=== PATIENT | female | born 1980 | race Caucasian/White ===

== ENCOUNTER 2022-03-18 09:25 | Outpatient (CLI) | payer OTHER, SELFPAY ==
--- NOTE | ~2022-03-18 | MM_ITS ---
EXAMINATION: MM screening guru BI w deborah HISTORY: Screening TECHNIQUE: Craniocaudal and mediolateral oblique 3-D tomosynthesis images were obtained and synthetic 2-D images were generated. CAD analysis was submitted and interpreted. COMPARISON: No prior mammogram is available for comparison at this institution. BREAST PARENCHYMAL COMPOSITION: There are scattered areas of fibroglandular density. FINDINGS: There is no evidence of suspicious mass, calcification, or architectural distortion to sugg est malignancy in either breast. There has been no suspicious interval change. IMPRESSION: 1. No mammographic evidence of malignancy. 2. Recommend routine screening mammography in one year. BI-RADS Category 1: Negative Reviewed, dictated and finalized at location B. 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
== END 2022-03-18 09:26 | disposition home or self-care (01) ==
LOC: ANHIMG 09:26
PROVIDERS: PCP Family Medicine; Visit Provider Obstetrics & Gynecology
DX: Z12.31 Encounter for screening mammogram for malignant neoplasm of breast (principal)
CPT/HCPCS: 77063; 77067

== ENCOUNTER 2022-09-19 21:52 | Emergency (ER) | payer OTHER, SELFPAY ==
--- NOTE | ~2022-09-19 | XR_ITS ---
EXAMINATION: XR chest 2V DATE: 09/20/2022 02:51 INDICATION: Chest pain TECHNIQUE: PA and lateral views of the chest are obtained. COMPARISON: 02/11/2010 FINDINGS: The lungs are free of acute opacities. No pleural effusion or pneumothorax. The cardiomedia stinal silhouette is normal. There is mild thoracic spondylosis. IMPRESSION: 1. No acute cardiopulmonary abnormality. Reviewed, dictated and finalized at location A.
[2022-09-19 21:55] VITALS: BP 163/111; PULSE 77; RESP 18; TEMP 36.7; O2SAT 100
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
[2022-09-20 03:19] VITALS: BP 130/77; PULSE 77; RESP 18; O2SAT 99
== END 2022-09-20 03:32 | disposition home or self-care (01) ==
PROVIDERS: Emergency Provider Physician Assistant; PCP Family Medicine
DX: S19.9XXA Unspecified injury of neck, initial encounter (principal); S79.911A Unspecified injury of right hip, initial encounter; S49.92XA Unspecified injury of left shoulder and upper arm, initial encounter; J45.909 Unspecified asthma, uncomplicated; M79.7 Fibromyalgia; Z90.49 Acquired absence of other specified parts of digestive tract; Z98.84 Bariatric surgery status; V49.40XA Driver injured in collision with unspecified motor vehicles in traffic accident, initial encounter
CPT/HCPCS: 71046; 96372; 99283; J1100

== ENCOUNTER 2023-07-02 10:57 | Outpatient (CLI) | payer OTHER, SELFPAY ==
--- NOTE | ~2023-07-02 | XR_ITS ---
EXAM: XR hand RT min 3V DATE: 07/02/2023 11:09 HISTORY: M25.449 - Effusion, unspecified hand . COMPARISON: None available. FINDINGS: Normal mineralization. No fracture or dislocation. No lytic or blastic lesion. Mild arthri tic changes typical of osteoarthritis in the DIP joints of the fingers and the third PIP joint. No er osion or periosteal change. Soft tissues within normal limits. IMPRESSION: Mild polyarticular osteoarthritis. Reviewed, dictated and finalized at location K.
== END 2023-07-02 10:58 ==
LOC: MICIMG 10:59
PROVIDERS: PCP Family Medicine; Visit Provider Nurse Practitioner Adult Health
DX: M19.041 Primary osteoarthritis, right hand (principal)
CPT/HCPCS: 73130

== ENCOUNTER 2024-02-03 14:19 | Outpatient (CLI) | payer OTHER, SELFPAY ==
[2024-02-03 14:34] LABS: Basophils Percent Auto 0.3 % (0.2-1.2); Eosinophils Absolute Auto 0.4 K/mm3 (0-0.3); Eosinophils Percent Auto 5.9 % (0-4.4); Hematocrit 28.4 % (37.0-47.0); Hemoglobin 7.4 g/dL (12.0-15.0); Immature Granulocyte Absolute 0.02 K/mm3 (0.00-0.031); Immature Granulocyte Percent A 0.3 % (0-0.5); Lymphocytes Absolute Auto 2.58 K/mm3 (0.9-3.2); Lymphocytes Percent Auto 39.2 % (18.3-44.2); Mean Corpuscular HGB Conc 26.1 g/dl (32-36); Mean Corpuscular Hemoglobin 17.5 pg (26-34); Mean Corpuscular Volume 67.3 fl (80-100); Mean Platelet Volume 9.9 fl (7.4-10.4); Monocytes Absolute Auto 0.6 K/mm3 (0.1-0.6); Monocytes Percent Auto 8.5 % (2.6-8.5); Neutrophils Percent Auto 45.8 % (45.5-73.1); Platelet Count Result 318 k/mm3 (150-375); Red Blood Count 4.22 M/mm3 (4.2-5.4); Red Cell Distribution Width 18.1 % (11.5-14.5); White Blood Count 6.6 K/mm3 (4.5-10.0)
[2024-02-03 14:39] LABS: Platelet Estimate Adequate (Adequate)
[2024-02-03 14:40] LABS: Hypochromasia 1+; Ovalocytes 1+; Schistocytes None Seen
[2024-02-03 14:41] LABS: Anisocytosis 1+; Microcytosis 1+ (NORMAL)
[2024-02-03 14:42] LABS: Poikilocytosis 1+
[2024-02-03 16:46] LABS: Iron 18 ug/dL (37-170)
[2024-02-03 16:48] LABS: Alanine Aminotransferase 81 U/L (6-35); Albumin Level 3.9 g/dL (3.5-5.1); Alkaline Phosphatase 105 U/L (38-126); Anion Gap 8 mmol/L (4-12); Aspartate Amino Transferase 59 U/L (14-36); Bilirubin,Total 0.6 mg/dL (0.2-1.3); Blood Urea Nitrogen 11 mg/dL (7-17); Calcium 8.7 mg/dL (8.4-10.2); Carbon Dioxide 30 mmol/L (22-30); Chloride 100 mmol/L (98-107); Estimated Glomerular Filt Rate > 60; Glucose 84 mg/dL (65-110); Potassium 3.8 mmol/L (3.4-5.0); Sodium 138 mmol/L (137-145)
[2024-02-03 16:57] LABS: Percent Iron Saturation 3 % (20-50)
[2024-02-03 17:22] LABS: Ferritin 4.36 ng/mL (6.24-137)
[2024-02-03 17:55] LABS: Folic Acid 8.8 ng/mL (2.76->20)
[2024-02-11 12:13] LABS: Soluble Transferrin Receptor 3.76 mg/L (0.76-1.76)
== END 2024-02-03 14:20 | disposition home or self-care (01) ==
LOC: ANHLAB 14:20
PROVIDERS: PCP Family Medicine; Visit Provider Internal Medicine Hematology & Oncology
DX: D64.9 Anemia, unspecified (principal)
CPT/HCPCS: 36415; 80053; 82607; 82728; 82746; 83540; 83550; 84238; 85025

== ENCOUNTER 2024-04-09 09:14 | Outpatient (CLI) | payer OTHER, SELFPAY ==
[2024-04-09 09:33] LABS: Hematocrit 28.6 % (37.0-47.0); Hemoglobin 7.5 g/dL (12.0-15.0); Mean Corpuscular HGB Conc 26.2 g/dl (32-36); Mean Corpuscular Hemoglobin 17.2 pg (26-34); Mean Corpuscular Volume 65.7 fl (80-100); Mean Platelet Volume 9.4 fl (7.4-10.4); Platelet Count Result 284 k/mm3 (150-375); Red Blood Count 4.35 M/mm3 (4.2-5.4); White Blood Count 7.3 K/mm3 (4.5-10.0)
[2024-04-09 15:53] LABS: Iron 19 ug/dL (37-170)
[2024-04-09 16:02] LABS: Percent Iron Saturation 3 % (20-50); TOTAL IRON BINDING CAPACITY 558 ug/dL (261-462)
[2024-04-09 16:28] LABS: Ferritin 4.02 ng/mL (6.24-137)
== END 2024-04-09 09:15 | disposition home or self-care (01) ==
LOC: ANHLAB 09:14
PROVIDERS: Visit Provider Internal Medicine Hematology & Oncology
DX: D64.9 Anemia, unspecified (principal)
CPT/HCPCS: 36415; 82728; 83540; 83550; 85027

== ENCOUNTER 2024-06-05 08:29 | Outpatient (CLI) | payer OTHER, SELFPAY | END 2024-06-05 08:30 | disposition home or self-care (01) | LOC: MICIMG 08:29 | PROVIDERS: Visit Provider Nurse Practitioner Obstetrics & Gynecology | DX: N83.291 Other ovarian cyst, right side (principal) | CPT/HCPCS: 76830; 76856 ==

== ENCOUNTER 2024-07-14 13:54 | Outpatient (CLI) | payer OTHER, SELFPAY ==
[2024-07-14 14:07] LABS: Basophils Percent Auto 0.1 % (0.2-1.2); Eosinophils Percent Auto 0.1 % (0-4.4); Hemoglobin 12.7 g/dL (12.0-15.0); Immature Granulocyte Absolute 0.03 K/mm3 (0.00-0.031); Immature Granulocyte Percent A 0.3 % (0-0.5); Lymphocytes Absolute Auto 0.49 K/mm3 (0.9-3.2); Lymphocytes Percent Auto 5.4 % (18.3-44.2); Mean Corpuscular HGB Conc 30.2 g/dl (32-36); Mean Corpuscular Hemoglobin 24.3 pg (26-34); Mean Corpuscular Volume 80.3 fl (80-100); Mean Platelet Volume 9.7 fl (7.4-10.4); Monocytes Absolute Auto 0.1 K/mm3 (0.1-0.6); Monocytes Percent Auto 1.1 % (2.6-8.5); Neutrophils Absolute Auto 8.4 K/mm3 (1.3-6.7); Platelet Count Result 308 k/mm3 (150-375); Red Blood Count 5.23 M/mm3 (4.2-5.4); Red Cell Distribution Width 19.3 % (11.5-14.5)
--- OUTSIDE RECORDS SUMMARY | 2024-07-14 15:34 | XMS_ITS | Clinical Summary ---
Author Organization [facility] Address [address] [place] [address] Care Team Providers Care Academic Adviser Name Role Phone [place] Rodriguez MD Primary Care Provider Allergies Active Allergy Reactions Criticality Noted Date Comments Ciprofloxacin Diarrhea,Other (See comments),Stomach upset Low Reaction: GI UPSET, DIARRHEA, DEHYDRATION, Ibuprofen Other (See comments) Low Reaction: HYPEREMESIS, Lactose Stomach upset Low Metronidazole Diarrhea Low 07/20/2010 Nsaids (Non-Steroidal Anti-Inflammatory Drug) Stomach upset Low 05/18/2018 Penicillins Hives,Vomiting Medium Sulfa (Sulfonamide Antibiotics) Stomach upset,Diarrhea,Other (See comments) Reaction: GI UPSET, DIARRHEA, DEHYDRATION, Medications pregabalin (LYRICA) 100 mg capsule Take 100 mg by mouth every morning 0 Active dronabinoL (MARINOL) 2.5 mg capsule Take 2.5 mg by mouth every morning 0 Active rizatriptan (MAXALT) 10 mg tablet Take 10 mg by mouth once as needed for migraine 0 Active albuterol 2.5 mg /3 mL (0.083 %) nebulizer solutionIndicat ions:Acute Asthma Attack Take 2.5 mg by nebulization every 4 (four) hours as needed Active Vimovo 500-20 mg tablet,IR & delay rel,biphasicInd ications:pain on hold for surgery Take 1 tablet by mouth 2 (two) times a day 0 Active oxyCODONE (ROXICODONE) 10 mg tablet Take 10 mg by mouth every 4 (four) hours as needed for pain 0 Active Xtampza ER 18 mg capsule,sprinkl e,ER 12hr tmprrIndication s:severe chronic pain requiring long-term opioid treatment Take 1 Caplet by mouth 2 (two) times a day 0 Active norethindrone (AYGESTIN) 5 mg tabletIndicatio ns:ovarian cyst Take 5 mg by mouth nightly 0 Active omeprazole (PriLOSEC) 40 mg capsuleIndicati ons:Stress Ulcer Prophylaxis Take 40 mg by mouth nightly [address] (CYMBALTA) 30 mg capsuleIndicati ons:Anxiety with Depression Take 30 mg by mouth nightly 0 Active cyclobenzaprine (FLEXERIL) 10 mg tabletIndicatio ns:Muscle Spasm Take 10 mg by mouth 2 (two) times a day as needed 0 Active cholecalciferol (VITAMIN D-3) 25 mcg (1,000 unit) tabletIndicatio ns:Vitamin D Deficiency Take 1,000 Units by mouth nightly Active dronabinoL (MARINOL) 5 mg capsule Take 5 mg by mouth nightly Active pregabalin (LYRICA) 300 mg capsule Take 300 mg by mouth nightly Active albuterol HFA (PROVENTIL HFA,VENTOLIN HFA,PROAIR HFA) 90 mcg/actuation inhalerIndicati ons:Acute Asthma Attack Inhale 2 puffs every 6 (six) hours as needed for shortness of breath 1 Inhaler 0 Active oxyCODONE-aceta minophen (PERCOCET) 10-325 mg per tablet 0 Active Active Problems Problem Noted Date Diagnosed Date Pigmented villonodular synovitis of knee, right 01/27/2020 Overview (01/27/2020): Added automatically from request for surgery [id number] 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 01/26/2020 Degeneration of intervertebral disc of lumbar re gion 01/19/2014 Overview (07/12/2016): Degenerative lumbar disc RUQ pain 06/27/2010 Anxiety 01/29/2010 Asthma 01/29/2010 Back pain 01/29/2010 DJD (degenerative joint disease) 01/29/2010 Dyspnea on exertion 01/29/2010 GERD (gastroesophageal reflux disease) 0 Hypertension 01/29/2010 Pre-op testing 01/29/2010 Morbid obesity 09/14/2009 Immunizations Immunization Administration Dates Next Due Influenza, Trivalent, Cell C ulture-based MDCK, Preservative Free, Antibiotic Free, Intramuscular 03/24/2019,05/18/2018 Influenza, Trivalent, IM (MDV) 02/12/2013 Surgical History Surgery Date Site/Laterality Comments MOLE REMOVAL 04/07/1988 - 04/06/1989 pre-cancer CARPAL TUNNEL RELEASE 04/07/2000 - 04/06/2001 Bilateral SECTION 06/2006, 03/2008 TUBAL LIGATION 03/07/2008 - 04/06/2008 BREAST SURGERY 03/07/2009 - 04/06/2009 milk duct BARIATRIC SURGERY 02/06/2010 gastric bypass CHOLECYSTECTOMY 06/05/2010 - 07/05/2010 UTERINE FIBROID EMBOLIZATION 04/07/2010 - 04/06/2011 HERNIA REPAIR 09/06/2011 - 10/05/2011 LUMBAR FUSION 02/05/2014 - 03/06/2014 L5-S1 BIOPSY 12/21/2019, 12/28/2019 Right leg Social History Tobacco Use Types Packs/Day Years Used Date Smoking Tobacco: Never Smokeless Tobacco: Never Alcohol Use Standard Drinks/Week Comments Not Currently 0 (1 standard drink = 0.6 oz pur e alcohol) AUDIT-C Answer Date Recorded Q1: How often do you have a drink containing alc ohol? Never 02/21/2020 Average Number of Drinks Not on file 020 Frequency of Binge Drinking Not on file 02/05 Comments Unknown Sex and Gender Information Value Date Recorded Sex Assigned at Not on file Legal Sex Female 2:45 PM LICENSED NURSING ASSISTANT Gender Identity Female 02/23/2020 2:31 PM LICENSED NURSING ASSISTANT Sexual Orientation Straight 02/23/2020 2: 31 PM LICENSED NURSING ASSISTANT Obstetrics History Last Filed Vital Signs Vital Sign Reading Time Taken Comments Blood Pressure 132/89 03/16/2020 3:50 PM LICENSED NURSING ASSISTANT Pulse 85 03/16/2020 3:50 PM LICENSED NURSING ASSISTANT Temperature 36.4 C (97.5 F) 03/16/2020 5:30 PM LICENSED NURSING ASSISTANT Respiratory Rate 13 03/16/2020 3:50 PM LICENSED NURSING ASSISTANT Oxygen Saturation 97% 03/16/2020 3:50 PM LICENSED NURSING ASSISTANT Inhaled Oxygen Concentration - - Weight 99.8 kg (220 lb) 02/21/2020 3:40 PM LICENSED NURSING ASSISTANT Height 165.1 cm (5' 5 ) 02/21/2020 3:40 PM LICENSED NURSING ASSISTANT Body Mass Index 36.61 02/21/2020 3:40 PM LICENSED NURSING ASSISTANT Plan of Treatment Not on file Insurance [facility] Member Subscriber Plan / Payer (Ef fective 2019-Present) Name:Jonathan Rueda Relation to Subscriber:Self Name:Jonathan Rueda Payer ID:[id number] Group ID:[id number] Type:MANAGED CARE OTHER Address: [address] [place] [address] [facility] Subscriber Plan / Payer (Ef fective 2019-Present) Name:Jonathan Rueda Relation to Subscriber:Self Name:Sneha Jonathan Greenberg Payer ID:[id number] Group ID:[id number] Type:MANAGED CARE OTHER Address: [address] [place] [address] Care Teams Academic Adviser Relationship Specialty Start Date End Date [place] Rodriguez MD PCP - General Family Medicine 03/04/18
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
--- OUTSIDE RECORDS SUMMARY | 2024-07-14 15:34 | XMS_ITS | Clinical Summary ---
Author Organization [facility] Care Team Providers Care Cash Management Officer Name Role Phone Unavailable Primary Care Provider Unavailabl e Social History Tobacco Use Types Packs/Day Years Used Date Smoking Tobacco: Never Assessed Comments Unknown Sex and Gender Information Value Date Recorded Sex Assigned at Not on file Legal Sex Female 10:05 PM CDT Gender Identity Not on file Sexual Orientation Not on file Plan of Treatment Health Maintenance Due Date Last Done Comments Hepatitis C Virus (HCV) Screening 1979 TdaP Immunization 1979 Hepatitis B Immunization (1 of 3 - 19+ 3-dose series) 09/16/1998 Pap Smear 09/16/2000 Cervical Cancer Screening (CCS) 09/16/2009 HPV/Cotest 09/16/2009 Discussion re Starting/Frequency of Mammograms 2019 Influenza Immunization (#1) 2023 02/12/2013 SARS-COV-2 Immunization ( season) 2023 05/24/2020, 04/26/2020 Respiratory Syncytial Virus (RSV) Immunization (Adult) (1 - 1-dose 75+ series) 09/16/2054 Meningococcal Immunization (ACWY) Aged Out No longer eligible b ased on patient's age to complete this topic Pneumococcal Immunization Combined Aged Out No longer eligible b ased on patient's age to complete this topic Rotavirus Immunization Aged Out No lo nger eligible based on patient's age to complete this topic
--- OUTSIDE RECORDS SUMMARY | 2024-07-14 15:34 | XMS_ITS | Continuity of Care Document ---
Author Organization [facility] Address [address] [place] [address] Phone Care Team Providers Care Coating Manager Name Role Phone Reyes German Unavailable Unavailable Advance Directives Directive Yes / No Effective Date File Name No Information Encounters Encounter Description Practice Location Reason(s) For Visit Diagnoses Date Provider Providers Copied on Encounter [facility], [address] [place] [address] [address], [place], [place], [id number], [place] tel:[phone] [facility] [place] No Information Mar-2 9-200 2 Maxi Chambers. [address] [place] , [address], [place], [address], [place]. tel:[phone] Family History Family Member Type Diagnosis Age At Onset No Information Payers Payer name Insurance type Covered libertarian ID Authoriza tion(s) No Information Social History Type Description Quantity Date Captured Comments Sex Female Smoking Status No Information Chief Complaint And Reason For Visit No Information Reason For Referral Reason For Referral No Information History Of Present Illness Encounter Date Complaint History Of Prese nt Illness No Information Functional Status Date Functional Assessmen t No Information Instructions Date Instruction Additional Infor mation No Information Assessments Type Assessment Date No Information Patient Care Teams Name Effective Dates (start - stop) Status Members No Information
--- OUTSIDE RECORDS SUMMARY | 2024-07-14 15:35 | XMS_ITS | Referral Summary ---
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 [...] Intramuscular 03/24/2019,05/18/2018 Influenza, Trivalent, IM (MDV) 02/12/2013 Social History Tobacco Use Types Packs/Day Years [...] on file Legal Sex Female 2:45 PM SAP BUSINESS OBJECTS CONSULTANT Gender Identity Female 02/23/2020 2:31 PM SAP BUSINESS OBJECTS CONSULTANT Sexual Orientation Straight 02/23/2020 2: 31 PM SAP BUSINESS OBJECTS CONSULTANT Last Filed Vital Signs Vital Sign Reading Time Taken Comments Blood Pressure 132/89 03/16/2020 3:50 PM SAP BUSINESS OBJECTS CONSULTANT Pulse 85 03/16/2020 3:50 PM SAP BUSINESS OBJECTS CONSULTANT Temperature 36.4 C (97.5 F) 03/16/2020 5:30 PM SAP BUSINESS OBJECTS CONSULTANT Respiratory Rate 13 03/16/2020 3:50 PM SAP BUSINESS OBJECTS CONSULTANT Oxygen Saturation 97% 03/16/2020 3:50 PM SAP BUSINESS OBJECTS CONSULTANT Inhaled Oxygen Concentration - - Weight 99.8 kg (220 lb) 02/21/2020 3:40 PM SAP BUSINESS OBJECTS CONSULTANT Height 165.1 cm (5' 5 ) 02/21/2020 3:40 PM SAP BUSINESS OBJECTS CONSULTANT Body Mass Index 36.61 02/21/2020 3:40 PM SAP BUSINESS OBJECTS CONSULTANT Plan of Treatment Not on file Insurance Member Subscriber Plan / Payer (Ef fective 2019-Present) Name:Jonathan Hoover Relation to Subscriber:Self Name:Jonathan Hoover Dionicio Payer ID:[id number] Group ID:[id number] Type:MANAGED CARE OTHER Address: [address] [place] [address] [employer] [facility] Member Subscriber Plan / Payer ( fective 2019-Present) Name:Jonathan Hoover Relation to Subscriber:Self Name:Jonathan Hoover Payer ID:[id number] Group ID:[id number] Type:MANAGED CARE OTHER Address: [address] [place] [address] Care Teams Hrbp Relationship Specialty Start Date End Date [place] Rodriguez MD PCP - General Family Medicine 03/04/18
--- OUTSIDE RECORDS SUMMARY | 2024-07-14 15:35 | XMS_ITS | Clinical Summary ---
Author Organization [facility] Address [address] [address] Care Team Providers Care Fur Finisher Name Role Phone Lowell Rodriguez MD Primary Care Provider [phone] Allergies Active Allergy Reactions Criticality Noted Date Comments Aspirin, Buffered-Caffeine Other (See Comments) Medium 01/31/2010 Never take because of asthma per her doctor Ciprofloxacin Other (See Comments),Rash Low 09/18/2009 Ibuprofen Itching Low 10/05/2009 vomiting vomiting Levofloxacin Rash Low 09/18/2009 Metronidazole Diarrhea Low 07/20/2010 Penicillins Other (See Comments),Rash Low 09/18/2009 Sulfa (Sulfonamide Antibiotics) Diarrhea High 01/31/2010 Medications DULoxetine (CYMBALTA) 60 mg Capsule, Delayed Release(E.C.) Take 60 mg by mouth daily at bedtime. 3 Active magnesium oxide 250 mg magnesium Tablet Take 250 mg by mouth daily. Active orphenadrine (NORFLEX) 100 mg Extended Release tablet Take 100 mg by mouth 2 times daily. 4 Active omeprazole (PriLOSEC) 40 mg Capsule, Delayed Release(E.C.) Take 40 mg by mouth daily at bedtime. Active pregabalin (LYRICA) 300 mg Capsule Take 300 mg by mouth daily at bedtime. 0 Active oxyCODONE myristate (Xtampza ER) 27 mg capsule,sprbuck,E R 12hr tmprr Take by mouth. Active oxyCODONE (ROXICODONE) 10 mg tablet Take 10 mg by mouth every 6 hours as needed for Pain, Moderate. Active multivit-min/iron/ folic acid/K (BARIATRIC MULTIVITAMINS ORAL) Take by mouth. Active calcium carb/vitamin D3/vit K1 (CALCIUM-VITAMIN D3-VITAMIN K ORAL) Take by mouth. Active Active Problems No known active problems Encounters Date Type Department Care Team Description 07/09/2024 Telephone [facility] Oncology and Hematology - [place] [address] [place] [address] Joshua Torre MD Fatigue 06/23/2024 External Device Data STL ABSTRACTION Provider, Abstract 06/12/2024 External Device Data ST[facility] ABSTRACTION Provider, Abstract 06/12/2024 External Device Data [facility] ABSTRACTION Provider, Abstract 06/09/2024 External Device Data [facility] ABSTRACTION Provider, Abstract 05/26/2024 External Device Data ST[place] ABSTRACTION Provider, Abstract 05/25/2024 11:30 AM FINISHING MANAGER Telephone Check Up [facility] Oncology and Hematology [facility] [address] [place] [address] Joshua Torre MD Chronic anemia (Primary Dx) 05/05/2024 External Device Data STL ABSTRACTION Provider, Abstract 04/29/2024 External Device Data STL ABSTRACTION Provider, Abstract 04/27/2024 Telephone [facility] Oncology and Hematology [facility] [address] [place] [address] Joshua Torre MD Cloudy Urine 04/20/2024 External Device Data STL ABSTRACTION Provider, Abstract 04/20/2024 Orders Only [facility] Oncology and Hematology - [place] [address] [place] [address] Joshua Torre MD 04/16/2024 Orders Only [facility] Oncology and Hematology - [place] [address] [place] [address] Joshua Torre MD from Last 3 Months Family History Medical History Relation Name Comments No Known Problems Child 1 No Known Problems Child 2 No Known Problems Father Diabetes Mother No Known Problems Sister 1 No Known Problems Sister 2 Relation Name Status Comments Child 1 Alive Child 2 Alive Father Mother Alive Sister 1 Alive Sister 2 Alive Social History Tobacco Use Types Packs/Day Years Used Date Smoking Tobacco: Never Smokeless Tobacco: Never Tobacco Cessation:Counseling Given: Not Answered Alcohol Use Standard Drinks/Week Comments Yes 0 (1 standard drink = 0.6 oz pur e alcohol) occassionally Comments No Sex and Gender Information Value Date Recorded Sex Assigned at Not on file Legal Sex Female 3:27 PM CDT Gender Identity Not on file Sexual Orientation Not on file Last Filed Vital Signs Vital Sign Reading Time Taken Comments Blood Pressure 163/103 02/03/2024 1:49 PM CDT has been high lately running off of caffine patient says Pulse 78 02/03/2024 1:49 PM CDT Temperature 36.6 C (97.8 F) 02/03/2024 1:49 PM CDT Respiratory Rate 16 02/03/2024 1:49 PM CDT Oxygen Saturation 96% 02/03/2024 1:4 9 PM CDT Inhaled Oxygen Concentration - - Weight 85.3 kg (188 lb) 02/03/2024 1:49 PM CDT Height 165.1 cm (5' 5 ) 02/03/2024 1:49 PM CDT Body Mass Index 31.28 02/03/2024 1:49 PM CDT Plan of Treatment Upcoming Encounters Date Type Department Care Team (Late st Contact Info) Description 08/27/2024 10:45 AM CDT Office Visit [facility] Oncology and Hematology - [address] [facility] [address] [place] [address] Joshua Torre MD [address] [facility] [address] [place] [address] Health Maintenance Due Date Last Done Comments Pre-Diabetes and Diabetes Screening 1979 DTAP/TDAP/TD VACCINES (1 - Tdap) 09/16/1998 HEPATITIS B VACCINES (1 of 3 - 19+ 3-dose series) 09/16/1998 HPV/Cotest (21-29) 09/16/2000 CERVICAL CANCER SCREENING 09/16/2009 HPV/Cotest (30-65) 09/16/2009 PAP SMEAR 09/16/2009 BREAST CANCER SCREENING 2019 INFLUENZA VACCINE (#1) 2023 9, 03/24/2019, 05/18/2018, Additional history exists COVID-19 Vaccine (3 - season) 2023 05/24/2020, 04/26/2020 Preventative Visit- Commercial 04/07/2024 HPV VACCINES Aged Out No longer eligi ble based on patient's age to complete this topic Insurance [employer] Care Teams Fur Finisher Relationship Specialty Start Date End Date Lowell Rodriguez MD [address] [place] [address] PCP - General Family Practice 01/09/24
--- OUTSIDE RECORDS SUMMARY | 2024-07-14 15:35 | XMS_ITS | Clinical Summary ---
Author Organization [facility] Address [address] [place] [address] Care Team Providers Care Primary Operator Name Role Phone Lowell Rodriguez MD Primary Care Provider [phone] Jerrell Hernández MD Unavailable Source Comments [facility],non-owned Affiliates and Associated Physician Practices is amultiple site organization consisting of ambulatory clinics and hospital sitesin [place], [place], [place] and [place]. This disclosure is being madepursuant to the Care Everywhere program and may not contain all information available regarding this patient. Last updated 17.[facility] Allergies Active Allergy Reactions Criticality Noted Date Comments Aspirin Buffered Medium 01/31/2010 Never take because of asthma per her doctor Ciprofloxacin Hydrochloride Rash Low 09/19/19 10 Metronidazole Diarrhea 07/20/2010 Ibuprofen 10/05/2009 vomiting Levaquin Rash Low 09/18/2009 Nsaids Bleeding 10/01/2018 Penicillins Rash Low 09/18/2009 Sulfa Drugs Diarrhea High 01/31/2010 Medications * Be aware that medications may not be up to date on this document. Alwaysverify current medications with the patient. Medication Sig Dispensed Refills Start Date End Date Status omeprazole (PRILOSEC) 20 MG capsule Take 20 mg by mouth at bedtime. 02/06/2010 Active albuterol (PROVENTIL;VENTOLIN) (2.5 MG/3ML) 0.083% nebulizer solution Inhale by mouth every 4 hours while awake. Active albuterol HFA (PROVENTIL;VENTOLIN;MS OAIR) 108 (90 BASE) MCG/ACT inhaler Inhale 2 Puffs by mouth every 6 hours as needed. Active vitamin B-12 (CYANOCOBALAMIN) 100 MCG tablet Take 100 mcg by mouth daily. Active multivitamin daily (THERAGRAN) tablet Take 1 Tab by mouth daily with food. Active norethindrone-ethinyl estradiol (ORTHO-NOVUM ) 1-35 MG-MCG tablet Take 1 Tab by mouth once daily. Active pregabalin (LYRICA) 100 MG capsule Take 100 mg by mouth 3 times daily Active cyclobenzaprine (FLEXERIL) 10 MG tablet Take 10 mg by mouth 3 times daily as needed for Muscle Spasms Active Vitamin D, Cholecalciferol, 1000 UNITS TABS Take 5,000 Units by mouth once daily Active oxyCODONE, immediate release, 10 MG tablet Take 10 mg by mouth every 6 hours 03/19/2018 Active LYRICA 150 MG capsule Take 150 mg by mouth 3 times daily 02/18/2018 Active VITAMIN E BLEND PO Active dronabinol (MARINOL) 2.5 MG capsule Take by mouth 2 times daily Active DULoxetine (CYMBALTA) 30 MG capsule Take 30 mg by mouth at bedtime Active oxyCODONE ER 12hr (XTAMPZA ER) 27 MG capsule Take 27 mg by mouth every 12 hours Active norethindrone (AYGESTIN) 5 MG tablet TK 1 T PO D 12/30/2019 A ctive pregabalin (LYRICA) 300 MG capsule Take by mouth at bedtime 12/30/2019 Active rizatriptan (MAXALT) 10 MG tablet Take by mouth as needed 09/21/2019 Active VIMOVO 500-20 MG tablet Take by mouth once daily 01/17/2020 Active Active Problems Problem Noted Date Diagnosed Date RUQ pain 06/27/2010 Hypertension 01/29/2010 Anxiety 01/29/2010 GERD (gastroesophageal reflux disease) 0 Back pain 01/29/2010 Asthma 01/29/2010 Overview (02/12/2015): DJD (degenerative joint disease) 01/29/2010 Dyspnea on exertion 01/29/2010 Pre-op testing 01/29/2010 Morbid obesity 09/14/2009 Family History Medical History Relation Name Comments Alcohol abuse Father Bipolar Disorder Father Drug Abuse Father Hypertension Father Stroke Father Cancer Maternal Grandmother Hypertension Mother Migraine Mother Migraine Sister Relation Name Status Comments Father Maternal Grandmother Mother Sister Social History Tobacco Use Types Packs/Day Years Used Date Smoking Tobacco: Never Smokeless Tobacco: Never Alcohol Use Standard Drinks/Week Comments Yes 0 (1 standard drink = 0.6 oz pur e alcohol) socially Sex and Gender Information Value Date Recorded Sex Assigned at Not on file Gender Identity Not on file Sexual Orientation Not on file Last Filed Vital Signs Vital Sign Reading Time Taken Comments Blood Pressure 146/92 01/25/2020 8:54 AM CDT Pulse 92 01/25/2020 8:54 AM CDT Temperature 37.1 C (98.8 F) 01/04/2020 9:30 AM CDT Respiratory Rate 20 01/19/2020 9:02 AM CDT Oxygen Saturation 97% 01/04/2020 2:45 PM CDT Inhaled Oxygen Concentration - - Weight 103.4 kg (228 lb) 01/25/2020 8:54 AM CDT Height 165.1 cm (5' 5 ) 01/25/2020 8:54 AM CDT Body Mass Index 37.94 01/25/2020 8:54 AM CDT Plan of Treatment Health Maintenance Due Date Last Done Comments MAMMOGRAM 1979 Opioid Medication Agreement - Annual 1979 PAP SMEAR 1979 HIV SCREENING 09/16/1994 DTAP/TDAP/TD VACCINES (1 - Tdap) 09/16/1998 HEPATITIS B VACCINE (1 of 3 - 19+ 3-dose series) 09/16/1998 LIPID TESTING 01/31/2015 01/31/2010 SCREENING FOR DIABETES 03/26/2021 8, 09/11/2012, 09/11/2012, Additional history exists COVID-19 VACCINE ( - 2023- season) 2023 DEPRESSION SCREENING 04/07/2024 INFLUENZA VACCINE (Season Ended) 2024 03/24/2019, 05/18/2018 ZOSTER VACCINE (1 of 2) 09/16/2029 HEPATITIS C SCREENING Completed 03/26/2018 HIB VACCINE Aged Out No longer eligi ble based on patient's age to complete this topic HPV VACCINE Aged Out No longer eligi ble based on patient's age to complete this topic MENINGOCOCCAL (Group B) VACCINE SHARED DECISION-MAKING Aged Out No longer eligible based on patient's age to complete this topic MENINGOCOCCAL GROUPS A/C/Y/W VACCINE Aged Out No longer eligible based on patient's age to complete this topic PNEUMOCOCCAL VACCINE Aged Out No long er eligible based on patient's age to complete this topic Procedures Procedure Name Priority Date/Time Associated Diagnosis Comments COMPREHENSIVE METABOLIC PANEL Routine 03/26/2018 11:53 AM FLOOR COVERING PRINTER ASSISTANT Pain in joint, multiple sites HEPATITIS SCREEN ACUTE Routine 8 11:53 AM FLOOR COVERING PRINTER ASSISTANT Pain in joint, multiple sites LIPID PROFILE Routine 01/31/2010 3:51 PM CDT Hypertension Anxiety GERD (gastroesophageal reflux disease) Back pain Unspecified asthma DJD (degenerative joint disease) Dyspnea on exertion Pre-op testing Morbid obesity from Last 3 Months or Most Recently Relevant to Health Maintenance Results * (ABNORMAL) COMPREHENSIVE METABOLIC PANEL (03/26/2018 11:53 AM FLOOR COVERING PRINTER ASSISTANT) Glucose 82 65 - 99 mg/dL [facility] Comment: Fasting reference interval BUN 10 7 - 25 mg/dL [facility] Creatinine 0.61 0.50 - 1.10 mg/dL [facility] eGFR by MDRD 115 > OR = 60 mL/min/1. 73m2 [facility] eGFR by MDRD 133 > OR = 60 mL/min/1. 73m2 [facility] BUN/Creatinine Ratio NOT APPLICABLE 6 - 22 (calc) [facility] Sodium 139 135 - 146 mmol/L [facility] Potassium 4.8 3.5 - 5.3 mmol/L [facility] Chloride 105 98 - 110 mmol/L [facility] CO2 26 20 - 32 mmol/L [facility] Calcium 9.6 8.6 - 10.2 mg/dL [facility] Protein Total 6.8 6.1 - 8.1 g/dL [facility] Albumin 4.4 3.6 - 5.1 g/dL [facility] Globulin Total 2.4 1.9 - 3.7 g/dL (calc) [facility] Albumin/Globuli n Ratio 1.8 1.0 - 2.5 (calc) [facility] Bilirubin Total 1.2 0.2 - 1.2 mg/dL [facility] Alkaline Phosphatase 62 33 - 115 U/L [facility] AST 42(H) 10 - 30 U/L [facility] ALT 43(H) 6 - 29 U/L [facility] Comment: Test Performed at: [facility] [address] [facility] [place] [address] CARLOS CASTILLO DO,MPH Blood BLOOD SPECIMEN / Unknown 03/26/2018 11:53 AM FLOOR COVERING PRINTER ASSISTANT 03/26/2018 11:55 AM FLOOR COVERING PRINTER ASSISTANT Jerrell Hernández MD LAB - CHEMISTRY [facility] Performing Organization Address [facility] [place] [address] * HEPATITIS SCREEN ACUTE (03/26/2018 11:53 AM FLOOR COVERING PRINTER ASSISTANT) Pathologist [facility] Hepatitis A Virus Antibody IgM NON-REACTI VE NON-REACT [facility]IA [facility] Hepatitis B Virus Surface Antigen NON-REACTI VE NON-REACT [facility]IG[facility]IA [facility] Hepatitis B Core Virus Antibody IgM NON-REACTI VE NON-REACT MIG[facility]IA [facility] Hepatitis C Antibody NON-REACTI VE NON-REACT MIGDALIA [facility] Signal to Cut-Off 0.01 <1.00 [facility] Comment: Test Performed at: [place] [address] CARLOS CASTILLO DO,MPH Blood BLOOD SPECIMEN / Unknown 03/26/2018 11:53 AM FLOOR COVERING PRINTER ASSISTANT 03/26/2018 11:55 AM FLOOR COVERING PRINTER ASSISTANT Jerrell Hernández MD LAB - CHEMISTRY [facility] Performing Organization Address [facility] [place] [address] * (ABNORMAL) LIPID PROFILE (01/31/2010 3:51 PM CDT) Pathologist [facility] Cholesterol 147 120.0 - 200.0 mg/dl [facility] Triglycerides 309(H) 0.0 - 250.0 mg/dl [facility] HDL Cholesterol 42 >40 mg/dl [facility] LDL Calculated 43.2 mg/dl [facility] Chol HDL Ratio 3.5 [facility] Comment Lipid [facility] Comment: Risk Classification HDL CHOL LDL CHOL TOTAL CHOL According to NCEP (mg/dl) (mg/dL) (mg/dl) Desirable >40 <130 < 200 Borderline/High - 130-159 200-239 High - >159 > 239 The total cholesterol to HDL cholesterol ratio may be used to predict risk for coronary heart disease in untreated patients according to data reported from the [place] Study by Carlos Morris M.D. The predictive value in patients over 60 years of age is uncertain. Risk TOTAL CHOL/HDL RATIO MEN WOMEN 1/2 Average 3.43 3.27 Average 4.97 4.44 2X Average 9.55 7.05 3X Average 23.39 11.04 In Coronary Artery Disease patients, in whom nonpharmacological therapy has failed, the AHA recommends that drug therapy should be prescribed to lower LDL cholesterol to <100mg/dL. Drug therapy may be instituted in patients with HDL <35mg/dL. The reported LDL is a calculated result. For a more precise measurement, a direct LDL test is available, as necessary. BLOOD SPECIMEN / Unknown 01/31/2010 3:51 PM CDT 01/31/2010 3:51 PM CDT Jeff Mcgraw MD LAB - CHEMISTRY [facility]IN [facility] Organization Address City/State/[facility] Co de Phone Number [facility] [address] [place] [address] from Last 3 Months or Most Recently Relevant to Health Maintenance Advance Directives * FULL RESUSCITATION (Latest Code Status on File) Date Activated Date Inactivated Comments 09/09/2012 10:11 PM 09/11/2012 11:31 AM * FULL RESUSCITATION Date Activated Date Inactivated Comments 09/09/2012 5:53 PM 09/09/2012 10:11 PM * Full Code Date Activated Date Inactivated Comments 02/07/2010 7:56 AM 02/10/2010 12:30 AM Care Teams Primary Operator Relationship Specialty Start Date End Date Lowell Rodriguez MD [address] [place] [address] PCP - General Family Medicine 09/09/12 Jerrell Hernández [place] [address] [place] [address] Boarding Room Fixer Rheumatology 03/26/18
[2024-07-14 18:28] LABS: Iron 36 ug/dL (37-170)
[2024-07-14 18:38] LABS: Percent Iron Saturation 7 % (20-50)
[2024-07-14 19:05] LABS: Ferritin 8.35 ng/mL (6.24-137)
[2024-07-14 19:59] LABS: Folic Acid 14.5 ng/mL (2.76->20)
== END 2024-07-14 13:55 | disposition home or self-care (01) ==
LOC: ANHLAB 13:55
PROVIDERS: Visit Provider Internal Medicine Hematology & Oncology
DX: D64.9 Anemia, unspecified (principal)
CPT/HCPCS: 36415; 82607; 82728; 82746; 83540; 83550; 85025

== ENCOUNTER 2024-09-03 08:43 | Outpatient (CLI) | payer OTHER, SELFPAY ==
--- NOTE | ~2024-09-03 | MM_ITS ---
EXAMINATION: MM screening guru BI w deborah HISTORY: Screening TECHNIQUE: Craniocaudal and mediolateral oblique 3-D tomosynthesis images were obtained and synthetic 2-D images were generated. CAD analysis was submitted and interpreted. COMPARISON: Comparison to multiple prior studies sequentially, with oldest reviewed study dated 12/2009. BREAST PARENCHYMAL COMPOSITION: Not dense: There are scattered areas of fibroglandular density. FINDINGS: There is no evidence of suspicious mass, calcification, or architectural distortion to sugg est malignancy in either breast. There has been no suspicious interval change. IMPRESSION: 1. No mammographic evidence of malignancy. 2. Recommend routine screening mammography in one year. BI-RADS Category 1: Negative Reviewed, dictated and finalized at location A.
--- OUTSIDE RECORDS SUMMARY | 2024-09-03 08:47 | XMS_ITS | Clinical Summary ---
Author Organization [facility] Care Team Providers Care Stringer Up Soldering Machine Name Role Phone Unavailable Primary Care Provider [...]
--- OUTSIDE RECORDS SUMMARY | 2024-09-03 08:47 | XMS_ITS | Clinical Summary ---
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 [...] on file Legal Sex Female 2:45 PM CHASSIS INSPECTOR Gender Identity Female 02/23/2020 2:31 PM CHASSIS INSPECTOR Sexual Orientation Straight 02/23/2020 2: 31 PM CHASSIS INSPECTOR Obstetrics History Last Filed Vital Signs Vital Sign Reading Time Taken Comments Blood Pressure 132/89 03/16/2020 3:50 PM CHASSIS INSPECTOR Pulse 85 03/16/2020 3:50 PM CHASSIS INSPECTOR Temperature 36.4 C (97.5 F) 03/16/2020 5:30 PM CHASSIS INSPECTOR Respiratory Rate 13 03/16/2020 3:50 PM CHASSIS INSPECTOR Oxygen Saturation 97% 03/16/2020 3:50 PM CHASSIS INSPECTOR Inhaled Oxygen Concentration - - Weight 99.8 kg (220 lb) 02/21/2020 3:40 PM CHASSIS INSPECTOR Height 165.1 cm (5' 5) 02/21/2020 3:40 PM CHASSIS INSPECTOR Body Mass Index 36.61 02/21/2020 3:40 PM CHASSIS INSPECTOR Plan of Treatment Not on file Insurance [facility] Member Subscriber Plan / Payer (Ef fective 2019-Present) Name:Jonathan Rueda Relation to Subscriber:Self Name:Jonathan Rueda Payer ID:[id number] Group ID:[id number] Type:MANAGED CARE OTHER Address: [address] [place] [address] [facility] Member Subscriber Plan / Payer (Ef fective 2019-Present) Name:Jonathan Rueda Relation to Subscriber:Self Name:Sneha Jonathan Greenberg Payer ID:[id number] Group ID:[id number] Type:MANAGED CARE OTHER Address: [address] [place] [address] Care Teams Cold Roll Operator Relationship Specialty Start Date End Date Lowell Rodriguez MD PCP - General Family Medicine 03/04/18
--- OUTSIDE RECORDS SUMMARY | 2024-09-03 08:47 | XMS_ITS | Referral Summary ---
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 [...] on file Legal Sex Female 2:45 PM BULL RIVETER Gender Identity Female 02/23/2020 2:31 PM BULL RIVETER Sexual Orientation Straight 02/23/2020 2: 31 PM BULL RIVETER Last Filed Vital Signs Vital Sign Reading Time Taken Comments Blood Pressure 132/89 03/16/2020 3:50 PM BULL RIVETER Pulse 85 03/16/2020 3:50 PM BULL RIVETER Temperature 36.4 C (97.5 F) 03/16/2020 5:30 PM BULL RIVETER Respiratory Rate 13 03/16/2020 3:50 PM BULL RIVETER Oxygen Saturation 97% 03/16/2020 3:50 PM BULL RIVETER Inhaled Oxygen Concentration - - Weight 99.8 kg (220 lb) 02/21/2020 3:40 PM BULL RIVETER Height 165.1 cm (5' 5) 02/21/2020 3:40 PM BULL RIVETER Body Mass Index 36.61 02/21/2020 3:40 PM BULL RIVETER Plan of Treatment Not on file Insurance Member Subscriber Plan / Payer (Ef fective 2019-Present) Name:Jonathan Hoover Relation to Subscriber:Self Name:Jonathan Hoover Dionicio Payer ID:[id number] Group ID:[id number] Type:MANAGED CARE OTHER Address: [address] [place] [address] [employer] [facility] Member Subscriber Plan / Payer ( fective 2019-Present) Name:Jonathan Hoover Relation to Subscriber:Self Name:Jonathan Hoover Payer ID:[id number] Group ID:[id number] Type:MANAGED CARE OTHER Address: [address] [place] [address] Care Teams Cable Television Line Technician Relationship Specialty Start Date End Date Lowell Rodriguez MD PCP - General Family Medicine 03/04/18
--- OUTSIDE RECORDS SUMMARY | 2024-09-03 08:47 | XMS_ITS | Clinical Summary ---
Author Organization [facility] Social Address [address] [facility] [place] [address] Care Team Providers Care Program Project Analyst Name Role Phone Lowell Rodriguez MD Primary Care Provider [phone] Jerrell Hernández MD Unavailable Source Comments [facility],non-owned Affiliates and Associated Physician Practices is amultiple site organization consisting of ambulatory clinics and hospital sitesin [place], [place], [place] and [place]. This disclosure is being madepursuant to the Care Everywhere program and may not contain all information available regarding this patient. Last updated 17.[facility] Allergies Active Allergy Reactions Criticality Noted Date [...] document. Alwaysverify current medications with the patient. omeprazole (PRILOSEC) 20 MG capsule Take 20 mg by mouth at bedtime. 02/06/2010 Active albuterol (PROVENTIL;VENT GLENNA) (2.5 MG/3ML) 0.083% nebulizer solution Inhale by mouth every 4 hours while awake. Active albuterol HFA (PROVENTIL;VENT GLENNA;PROAIR) 108 (90 BASE) MCG/ACT inhaler Inhale 2 Puffs by mouth every 6 hours as needed. Active vitamin B-12 (CYANOCOBALAMIN ) 100 MCG tablet Take 100 mcg by mouth daily. Active multivitamin daily (THERAGRAN) tablet Take 1 Tab by mouth daily with food. Active norethindrone-e thinyl estradiol (ORTHO-NOVUM ) 1-35 MG-MCG tablet Take 1 Tab by mouth once daily. 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 Gender Identity Not on file Sexual Orientation [...] 8:54 AM CDT Height 165.1 cm (5' 5) 01/25/2020 8:54 AM CDT Body Mass Index 37.94 01/25/2020 8:54 AM CDT Plan of Treatment Health Maintenance Due Date Last Done Comments MAMMOGRAM 1980 Opioid Medication Agreement - Annual 1980 HIV SCREENING 09/16/1994 DTAP/TDAP/TD VACCINES (1 - Tdap) 09/16/1998 HEPATITIS B VACCINE (1 of 3 - 19+ 3-dose series) 09/16/1998 LIPID TESTING 01/31/2015 01/31/2010 SCREENING FOR DIABETES 03/26/2021 8, 09/11/2012, 09/11/2012, Additional history exists COVID-19 VACCINE ( - season) 2023 DEPRESSION SCREENING 04/07/2024 INFLUENZA VACCINE [...] COMPREHENSIVE METABOLIC PANEL Routine 03/26/2018 11:53 AM MENAGERIE SUPERINTENDENT Pain in joint, multiple sites HEPATITIS SCREEN ACUTE Routine 8 11:53 AM MENAGERIE SUPERINTENDENT Pain in joint, multiple sites LIPID PROFILE Routine 01/31/2010 3:51 PM CDT Hypertension Anxiety GERD (gastroesophageal reflux disease) Back pain Unspecified asthma DJD (degenerative joint disease) Dyspnea on exertion Pre-op testing Morbid obesity from Last 3 Months or Most Recently Relevant to Health Maintenance Results * (ABNORMAL) COMPREHENSIVE METABOLIC PANEL (03/26/2018 11:53 AM MENAGERIE SUPERINTENDENT) Glucose 82 65 - 99 mg/dL [facility] [...] 29 U/L [facility] Comment: Test Performed at: [facility] [address] [place] [address] CARLOS CASTILLO DO,MPH Blood BLOOD SPECIMEN / Unknown 03/26/2018 11:53 AM MENAGERIE SUPERINTENDENT 03/26/2018 11:55 AM MENAGERIE SUPERINTENDENT Jerrell Hernández MD LAB - CHEMISTRY ORDERABLES Final Result Performing Organization Address [facility] [place] [address] * HEPATITIS SCREEN ACUTE (03/26/2018 11:53 AM MENAGERIE SUPERINTENDENT) Pathologist [facility] Hepatitis A Virus Antibody IgM NON-REACTI VE NON-REACT [facility] Hepatitis B Virus Surface Antigen NON-REACTI VE NON-REACT [facility] Hepatitis B Core Virus Antibody IgM NON-REACTI VE NON-REACT [facility] Hepatitis C Antibody NON-REACTI VE NON-REACT [facility] Signal to Cut-Off 0.01 <1.00 [facility] Comment: Test Performed at: [place] [address] CARLOS CASTILLO DO,MPH Blood BLOOD SPECIMEN / Unknown 03/26/2018 11:53 AM MENAGERIE SUPERINTENDENT 03/26/2018 11:55 AM MENAGERIE SUPERINTENDENT Jerrell Hernández MD LAB - CHEMISTRY ORDERABLES Final Result Performing Organization Address [facility] [place] [address] * (ABNORMAL) LIPID PROFILE (01/31/2010 3:51 PM CDT) Cholesterol 147 120.0 - 200.0 mg/dl [facility] Triglycerides 309(H) 0.0 - 250.0 mg/dl [facility] HDL Cholesterol 42 >40 mg/dl [facility] LDL Calculated 43.2 mg/dl [facility] Chol HDL Ratio 3.5 [facility] Comment Lipid [facility] Comment: Risk Classification HDL CHOL LDL CHOL TOTAL CHOL According to NCEP (mg/dl) (mg/dL) (mg/dl) Desirable >40 <130 < 200 Borderline/High - 130-159 200-239 High - >159 > 239 The total cholesterol to HDL cholesterol ratio may be used to predict risk for coronary heart disease in untreated patients according to data reported from the [place] Study by Carlos Morris M.D. The predictive [...] 3:51 PM CDT 01/31/2010 3:51 PM CDT us Jeff Mcgraw MD LAB - CHEMISTRY ORDERABLES nal Result [facility] [address] [place] [address] from Last 3 Months or Most Recently Relevant to Health Maintenance Insurance [employer] A[employer] Advance Directives * FULL RESUSCITATION (Latest Code Status on File) Date Activated Date Inactivated Comments 09/09/2012 10:11 PM 09/11/2012 11:31 AM * FULL RESUSCITATION Date Activated Date Inactivated Comments 09/09/2012 5:53 PM 09/09/2012 10:11 PM * Full Code Date Activated Date Inactivated Comments 02/07/2010 7:56 AM 02/10/2010 12:30 AM Care Teams Program Project Analyst Relationship Specialty Start Date End Date Lowell Rodriguez MD [address] [place] [address] PCP - General Family Medicine 09/09/12 Jerrell Hernández [place] [address] [place] [id number] Animal Shelter Manager Rheumatology 03/26/18
--- OUTSIDE RECORDS SUMMARY | 2024-09-03 08:48 | XMS_ITS | Continuity of Care Document ---
Author Organization [facility] Address [address] [place] [address] Phone Care Team Providers Care Tso Name Role Phone Reyes German Unavailable Unavailable Advance Directives Directive Yes / No Effective Date File Name No Information Encounters Encounter Description Practice Location Reason(s) For Visit Diagnoses Date Provider Providers Copied on Encounter formerly [facility], [id number] [place] [address] [address], [place], [place], [id number], [place] tel:[phone] [facility] [place] No Information Mar-2 9-[address] [place] , [address], [place], [address], [place]. tel:[phone] Family History Family Member Type Diagnosis Age At Onset No Information Payers Payer name Insurance type Covered republican ID Authoriza tion(s) No Information Social History [...]
--- OUTSIDE RECORDS SUMMARY | 2024-09-03 08:48 | XMS_ITS | Continuity of Care Document ---
Author Organization [facility] Address [address] [place] [address] Phone Care Team Providers Care Vice President Financial Name Role Phone Carlos Boogie MD, MD Unavailable Unavail able Allergies, Adverse Reactions, Alerts Substance Reaction Status [...] or bursa w/o US g uidance Office/outpatient visit,[facility], mod 2024 Kenalog 10mg/mL Asp/inject Minor joint or bursa w/o US g uidance Office[facility]outpatient visit,[facility], [facility] [place] Advance Directives Directive Yes / No Effective Date File Name No Information Encounters Encounter Description Practice Location Reason(s) For Visit Diagnoses Date Provider Providers Copied on Encounter Office/outpa tient visit,[facility], [facility], [address], [place], [place], [id number], tel:[phone] [facility] Right middle finger (chief complaint) Traumatic arthropathy, right hand Jun-0 5 Keagan Gonzalez. [address], [place], [place], [id number], [place]. tel:[phone] Office/outpa tient visit,[facility], [facility], [address], [place], [place], [id number], [place] tel:[phone] [facility] Right middle finger (chief complaint) Displaced fracture of distal phalanx of right middle finger, sequelaTraumat ic arthropathy, right hand Jul- 4 Kirti Villalpando. [address], [address], [place], [place], [id number], [place]. tel:[phone] Family History Family Member Type Diagnosis Age At Onset Father Problem (finding) Hypertension Mother Problem (finding) Other Mother Problem (finding) Osteoarthritis Father Problem (finding) Osteoarthritis Sister Problem (finding) Hypertension Sister Problem (finding) Other Sister Problem (finding) Osteoarthritis Mother Problem (finding) Hypertension Payers Payer name Insurance type Covered democrat ID Authoriza tion(s) [facility] [id number] Social History Type Description Quantity Date Captured [...] Prese nt Illness Right middle finger Trixie martel ts to the office today on June [...] imaging. Right hand x-rays were completed at [facility] on July 02, 2023. I independently reviewed [...]
--- OUTSIDE RECORDS SUMMARY | 2024-09-03 08:48 | XMS_ITS | Clinical Summary ---
Author Organization [facility] Address [address] [address] Care Team Providers Care Mixing Machine Tender Cork Rod Name Role Phone Lowell Rodriguez MD Primary Care Provider [phone] Allergies Active Allergy Reactions Criticality Noted Date [...] 60 mg by mouth daily at bedtime. 10/11/19 23 Active magnesium oxide 250 mg magnesium Tablet Take 250 mg by mouth daily. Active orphenadrine (NORFLEX) 100 mg Extended Release tablet Take 100 mg by mouth 2 times daily. 01/28/20 24 Active omeprazole (PriLOSEC) 40 mg Capsule, Delayed Release(E.C.) Take 40 mg by mouth daily at bedtime. Active pregabalin (LYRICA) 300 mg Capsule Take 300 mg by mouth daily at bedtime. 12/30/19 20 Active oxyCODONE myristate (Xtampza ER) 27 mg capsule,sprinkle, ER 12hr tmprr Take by mouth. A ctive oxyCODONE (ROXICODONE) 10 mg tablet Take 10 mg by mouth every 6 hours as needed for Pain, Moderate. Active multivit-min/iron /folic acid/K (BARIATRIC MULTIVITAMINS ORAL) Take by mouth. Activ e calcium carb/vitamin D3/vit K1 (CALCIUM-VITAMIN D3-VITAMIN K ORAL) Take by mouth. Activ e etonogestreL (Nexplanon) 68 mg Implant Inject by subcutaneous injection. Active Active Problems No known active problems Encounters Date Type Department Care Team Description 08/31/2024 External Device Data [facility] ABSTRACTION Provider, Abstract 08/27/2024 10:45 AM CDT Office Visit [facility] Oncology and Hematology [facility] [address] [place] [address] Joshua Torre MD Chronic anemia (Primary Dx) 08/25/2024 External Device Data [facility] ABSTRACTION Provider, Abstract 08/24/2024 External Device Data [facility] ABSTRACTION Provider, Abstract 07/16/2024 Orders Only [facility] Oncology and Hematology [facility] [address] [place] [address] Joshua Torre MD 07/09/2024 Telephone [facility] Oncology and Hematology [facility] [address] [place] [address] Joshua Torre MD Fatigue 06/23/2024 External Device Data [facility] ABSTRACTION Provider, Abstract 06/12/2024 External Device Data [facility] ABSTRACTION Provider, Abstract 06/12/2024 External Device Data [facility] ABSTRACTION Provider, Abstract 06/09/2024 External Device Data [facility] ABSTRACTION Provider, Abstract from Last 3 Months Family History Medical [...] Sign Reading Time Taken Comments Blood Pressure 139/82 08/27/2024 11:17 AM CDT Pulse 101 08/27/2024 11:13 AM CDT Temperature 35.8 C (96.5 F) 08/27/2024 11:13 AM CDT Respiratory Rate 15 08/27/2024 11:1 3 AM CDT Oxygen Saturation 97% 08/27/2024 11: 13 AM CDT Inhaled Oxygen Concentration - - Weight 84.7 kg (186 lb 12.8 oz) 025 11:13 AM CDT Height 165.1 cm (5' 5) 02/03/2024 1:49 PM CDT Body Mass Index 31.09 02/03/2024 1:49 PM CDT Plan of Treatment Upcoming Encounters Date Type Department Care Team (Late st Contact Info) Description 12/03/2024 12:45 PM CDT Office Visit [facility] Oncology and Hematology - [place] [address] [facility] [address] [place] [address] Joshua Torre MD [address] [place] [address] Health Maintenance Due Date Last Done Comments Pre-Diabetes and Diabetes Screening 1979 DTAP/TDAP/TD VACCINES (1 - Tdap) 09/16/1998 HEPATITIS B VACCINES (1 of 3 - 19+ 3-dose series) 09/16/1998 HPV/Cotest (21-29) 09/16/2000 CERVICAL CANCER SCREENING 09/16/2009 HPV/Cotest (30-65) 09/16/2009 PAP SMEAR 09/16/2009 BREAST CANCER SCREENING 2019 INFLUENZA VACCINE (#1) 2023 9, 03/24/2019, 05/18/2018, Additional history exists COVID-19 Vaccine ( season) 2023 05/24/2020, 04/26/2020 HPV VACCINES Aged Out No longer eligi ble based on patient's age to complete this topic Procedures Procedure Name Priority Date/Time Associated Diagnosis Comments IRON, TIBC, AND PERCENT SATURATION Routine 07/14/2024 2:05 PM CDT from Last 3 Months Results * IRON, TIBC, AND PERCENT SATURATION (07/14/2024 2:05 PM CDT) Blood Joshua Torre MD CHEMISTRY ORDERABLES Final Resu lt from Last 3 Months Insurance LIVE [employer] Address: [address] [place] [address] Care Teams Mixing Machine Tender Cork Rod Relationship Specialty Start Date End Date Lowell Rodriguez MD [address] [place] [address] PCP - General Family Practice 01/09/24
== END 2024-09-03 08:44 | disposition home or self-care (01) ==
LOC: ANHIMG 08:45
PROVIDERS: PCP Family Medicine; Visit Provider Obstetrics & Gynecology
DX: Z12.31 Encounter for screening mammogram for malignant neoplasm of breast (principal)
CPT/HCPCS: 77063; 77067